=== PATIENT | female | born 1990 | race Caucasian/White ===

== ENCOUNTER 2020-09-06 18:47 | Emergency (ER) | payer MEDICAID, SELFPAY ==
[~2020-09-06] VITALS: Ht 152.4 cm; Wt 59.0 kg
[~2020-09-06 18:47] MED LIST: CALCIUM; FERR325E14 PO; PREN-385 PO
[2020-09-06 18:56] VITALS: BP 117/75
--- NOTE | 2020-09-06 19:05 | NUR ---
SEEN AND EXAMINED BY PA WITH ORDER AND CARRIED OUT
--- NOTE | 2020-09-06 19:35 | NUR ---
SWAB DONE AND SENT TO LAB
[2020-09-06 19:40] VITALS: BP 117/75
--- NOTE | 2020-09-06 20:40 | NUR ---
Patient discharged with v/s stable. Written and verbal after care instructions given and explained. Patient alert, oriented and verbalized understanding of instructions. Ambulatory with steady gait. All questions addressed prior to discharge. ID band removed. Patient advised to follow up with PMD. Rx of IBUPROFEN, PROMETHAZINE DM given. Patient educated on indication of medication including possible reaction and side effects. Opportunity to ask questions provided and answered.
== END 2020-09-06 19:40 | disposition home or self-care (01) ==
LOC: MED 18:47
DX: B34.9 Viral infection, unspecified (principal); Z20.828 Contact with and (suspected) exposure to other viral communicable diseases; Z79.899 Other long term (current) drug therapy
CPT/HCPCS: 99283; U0003

== ENCOUNTER 2021-03-17 14:38 | Emergency (ER) | payer MEDICAID, OTHER ==
[~2021-03-17] VITALS: Ht 152.4 cm; Wt 61.2 kg
[2021-03-17 14:42] VITALS: BP 112/68
--- NOTE | 2021-03-17 14:45 | NUR ---
TO LOBBY A/W BED AMBULATORY
[2021-03-17] MEDS ORDERED: ERYT5OIN51 OP (15:37)
[2021-03-17 15:41] VITALS: BP 112/68
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
--- NOTE | 2021-03-17 15:45 | NUR ---
Patient discharged with v/s stable. Written and verbal after care instructions given and explained. Patient alert, oriented and verbalized understanding of instructions. Ambulatory with steady gait. All questions addressed prior to discharge. ID band removed. Patient advised to follow up with PMD. Rx of ERYTHROMYCIN BASE given. Patient educated on indication of medication including possible reaction and side effects. Opportunity to ask questions provided and answered.
== END 2021-03-17 15:45 | disposition home or self-care (01) ==
LOC: MED 14:38
DX: H00.012 Hordeolum externum right lower eyelid (principal); Z79.899 Other long term (current) drug therapy
CPT/HCPCS: 99283